=== PATIENT | female | born 1945 | race Caucasian/White ===

== ENCOUNTER 2016-12-04 09:05 | Outpatient (CLI) | payer MEDICARE | END 2016-12-04 09:06 | LOC: LAB 09:05 → RAD 09:06 | PROVIDERS: ATTEND Family Medicine | DX: M85.88 Other specified disorders of bone density and structure, other site (principal) ==

== ENCOUNTER 2017-09-11 09:40 | Outpatient (CLI) | payer MEDICARE ==
--- NOTE | 2017-09-11 11:43 | Diagnostic Imaging Report ---
MICHAEL CAMPBELL [facility] [address] [facility] [address] [address] Report Submission Date: Sep 11, 2017 11:05:11 AM ASSISTANT SCIENTIST Patient Study Name: TORRES CABALLERO Date: Sep 11, 2017 10:15:22 AM ASSISTANT SCIENTIST Modality Type: CR Gender: F Description: LOWER EXTREMITY : 47 Institution: [facility] Physician: MICHAEL CAMPBELL Examination: Plain film tibia/fibula History: Trauma Comparison exams: None available Findings: 2 views of the tibia fibula demonstrates knee replacement hardware. No evidence for fracture line. No soft tissue abnormality. Impression: No acute appearing osseous abnormality. Electronically signed on Sep 11, 2017 11:05:11 AM ASSISTANT SCIENTIST by: David STROUD
--- NOTE | 2017-09-11 11:43 | Diagnostic Imaging Report ---
MICHAEL CAMPBELL [facility] [address] [facility] [address] [address] Report Submission Date: Sep 11, 2017 11:04:02 AM SR COMMUNITY MANAGER Patient Study Name: TORRES CABALLERO Date: Sep 11, 2017 10:17:30 AM SR COMMUNITY MANAGER Modality Type: CR Gender: F Description: LOWER EXTREMITY : 47 Institution: [facility] Physician: MICHAEL CAMPBELL Examination: Plain film ankle History: Ankle discomfort. Findings: 3 views of the ankle demonstrates articular degenerative changes. No fracture or dislocation. Talar dome is intact. Calcaneal spurs. No soft tissue swelling. No joint effusion. Impression: Degenerative changes. No acute appearing osseous process. Electronically signed on Sep 11, 2017 11:04:02 AM SR COMMUNITY MANAGER by: David STROUD
== END 2017-09-11 09:45 ==
LOC: RAD 09:40
PROVIDERS: ATTEND Family Medicine
DX: M79.605 Pain in left leg (principal)
CPT/HCPCS: 73590; 73610

== ENCOUNTER 2018-04-18 09:56 | Emergency (ER) | payer MEDICARE ==
--- NOTE | 2018-04-18 10:04 | ED Physician Documentation ---
Nausea/Vomiting/Diarrhea - HISTORIAN Historian: patient - HPI Stated Complaint: nausea and vomiting Chief Complaint: Nausea,Vomiting,Diarrhea Onset: days ago (3) Duration: constant Last known Well Date: 04/16/18 Last Known Well Time: 07:00 Last known Well Code/Unknown Code: Unknown Timing: sudden onset Context: bad food Severity: moderate Further Comments: yes (she reports eating food from the local pantry on Friday and she has had nausea and vomiting that started . She states that she has had nausea vomiting and diarrhea since. she has not tried any OTC meds. No fever.) - Associated Symptoms Vomiting: frequent. denies: bloody Diarrhea: copious. denies: bloody Abdominal Pain: cramping, aching - ROS CONST: none CVS/RESP: denies: shortness of breath, cough GI/: denies: constipation, bloody stools, dark urine EYES/ENT: none MS/SKIN/LYMPH: joint pain (she has RA ) NEURO/PSYCH: none - PAST HX Past History: other (RA ) Surgeries/Procedures: appendectomy Immunizations: UTD Allergies/Adverse Reactions: Allergies Allergy/AdvReac Type Severity Reaction Status Date / Time No Allergy Information Allergy Unverified 04/18/18 10:30 Available Home Medications: Ambulatory Orders Medication Instructions Recorded Leflunomide 20 mg PO DAILY 04/18/18 Levothyroxine Sodium 75 mcg PO DAILY 04/18/18 Nortriptyline HCl 25 mg PO DAILY 04/18/18 Sertraline HCl 100 mg PO DAILY 04/18/18 predniSONE [Raina] 5 mg PO DAILY 04/18/18 - SOCIAL HX Smoking History: non-smoker Alcohol Use: none Drug Use: none - FAMILY HX Family History: none - VITAL SIGNS Vital Signs: Vital Signs Temp Pulse Resp BP Pulse Ox 98.5 F 88 16 107/60 95 04/18/18 10:12 04/18/18 12:46 04/18/18 12:46 04/18/18 12:46 04/18/18 12:46 - REVIEWED ASSESSMENTS Nursing Assessment Reviewed: Yes Vitals Reviewed: Yes Progress - Progress Progress: 1100: she states nausea is improved and she is feeling better. She is questioning what to eat at this point. DG 1227: Due to lab attempting to give oral potassium and monitor that she can hold that med down for discharge DG 1235: She states she is feeling "one hundred percent better and she is wanting to go home" DG ED Results Lab/Radiology - Lab Results Lab Results: Lab Results 04/18/18 04/18/18 04/18/18 10:45 10:45 10:45 WBC 6.40 K/ul K/ul (4.00-12.00) RBC 4.44 M/ul M/ul (3.90-5.20) Hgb 12.8 g/dL g/dL (12.0-16.0) Hct 38.4 % % (34.5-46.5) MCV 86.6 fl fl (80.0-100.0) MCH 28.8 pg pg (28.0-34.0) MCHC 33.3 g/dL g/dL (30.0-36.0) RDW 13.3 % % (11.3-14.3) Plt Count 242 K/mm3 K/mm3 (130-400) Neut % (Auto) 84.2 % H % (39.0-79.0) Lymph % (Auto) 10.5 % L % (16.0-50.0) Pepin % (Auto) 3.1 % % (0.0-11.0) Eos % (Auto) 0.2 % % (0.0-6.8) Baso % (Auto) 0.6 (0.0-1.5) Neut # (Auto) 5.4 # k/uL # k/uL (1.4-7.7) Lymph # (Auto) 0.7 # k/uL # k/uL (0.6-4.0) Pepin # (Auto) 0.2 # k/uL # k/uL (0.0-0.9) Eos # (Auto) 0.0 # k/uL # k/uL (0.0-0.6) Baso # (Auto) 0.0 # k/uL # k/uL (0.0-0.5) Reactive Lymphs % 1.4 % % (0.0-5.0) Reactive Lymphs # 0.1 # k/uL # k/uL (0.0-0.8) Sodium 134 mmol/L L mmol/L Cancelled (136-145) Potassium 3.2 mmol/L L mmol/L Cancelled (3.5-5.1) Chloride 93 mmol/L L mmol/L Cancelled (98-107) Carbon Dioxide Cancelled Total Carbon Dioxide 26 mmol/L mmol/L (22-29) BUN 6 mg/dL mg/dL Cancelled (6-20) Creatinine 0.80 mg/dL mg/dL Cancelled (0.40-1.50) Estimated Creat Clear Cancelled Est GFR ( Amer) Cancelled Est GFR (Non-Af Amer) Cancelled Estimated GFR mL/min 88 L Glucose 108 mg/dL H mg/dL Cancelled (70-99 Fasting) Calcium 9.1 mg/dL mg/dL Cancelled (8.6-10.2) Total Bilirubin <0.3 mg/dL mg/dL Cancelled (<1.2) AST 21 U/L U/L Cancelled (<32) ALT 15 U/L U/L Cancelled (<34) Alkaline Phosphatase 53 U/L U/L Cancelled (40-129) Total Protein 6.6 g/dL g/dL Cancelled (6.0-8.5) Albumin 4.4 g/dL g/dL Cancelled (3.5-5.2) - Orders Orders: ED Orders Category Date Time Status CBC/PLATELET/DIFF Routine Lab 04/18/18 10:45 Completed URINALYSIS Routine Lab 04/18/18 10:45 Received 0.9 % Sodium Chloride [Normal Saline] 1,000 ml Med 04/18/18 10:16 Discontinued IV .STK-MED 0.9 % Sodium Chloride [Normal Saline] 1,000 ml Med 04/18/18 10:57 Discontinued IV .STK-MED 0.9 % Sodium Chloride [Normal Saline] 1,000 ml Med 04/18/18 10:30 Discontinued IV Q10H 0.9 % Sodium Chloride [Normal Saline] 1,000 ml Med 04/18/18 10:59 Discontinued IV Q1H Ondansetron HCl/Pf [Zofran 4 mg/2 ml] Med 04/18/18 10:16 Discontinued 4 mg .ROUTE .STK-MED ONE Ondansetron HCl/Pf [Zofran 4 mg/2 ml] Med 04/18/18 10:14 Discontinued 4 mg IVP NOW ONE Potassium Chloride [Klor-Con M20] Med 04/18/18 12:08 Discontinued 20 meq PO NOW ONE Nausea Physical Exam - EXAM General Appearance: no acute distress, alert EENT: eye inspection normal Respiratory: no resp distress, chest non-tender, breath sounds normal CVS: reg rate & rhythm, heart sounds normal, equal pulses, no murmur Abdomen: tenderness (Right mid quad with palpation. "tenderness not pain" per pt ), abnml bowel sounds (hyperactive ) Back: non-tender Skin: warm/dry, normal color Extremities: non-tender, normal range of motion, no edema Neuro/Psych: oriented X3, CN's nml as tested, motor nml, sensation nml, mood/affect nml Discharge Clincal Impression: Food poisoning Qualifiers: Encounter type: initial encounter Injury intent: accidental or unintentional Qualified Code(s): T62.91XA - Toxic effect of unspecified noxious substance eaten as food, accidental (unintentional), initial encounter Referrals: Raymond Amador MD [Primary Care Provider] - 2 Days Comments: 1. [place] diet 2. Zofran 4 mg take 1 by mouth every 8 hours as needed 3. Potassium 20 mEq take 1 by mouth daily x 3 and re check the lab Friday at PCP 4. OTC meds for other symptoms as directed on package 5. Follow up with PCP Friday 6. Return to ER for any concerns Condition: Stable Disposition: 01 HOME, SELF-CARE Decision to Admit: NO Date of Decison to Admit: 04/18/18 Decision Time: 12:36
[2018-04-18] MEDS ORDERED: 0.9 % SODIUM CHLORIDE 1,000 ML IV ONE ×2 (10:16→10:57)
[2018-04-18] MEDS: 0.9 % SODIUM CHLORIDE 1,000 ML IV SCH (10:20)
[2018-04-18] MEDS: ONDANSETRON HCL/PF 4 MG/ 2ML VIAL IVP ONE (10:20)
[2018-04-18] MEDS: ONDANSETRON HCL/PF 4 MG/ 2ML VIAL ONE (10:26)
[2018-04-18 11:18] LABS: BASOPHILS % 0.6 (0.0-1.5); EOSINOPHILS % 0.2 % (0.0-6.8); MEAN CORPUSCULAR HEMOGLOBIN 28.8 pg (28.0-34.0); MEAN CORPUSCULAR VOLUME 86.6 fl (80.0-100.0); MONOCYTES % 3.1 % (0.0-11.0); NEUTROPHILS # 5.4 # k/uL (1.4-7.7)
[2018-04-18] MEDS: 0.9 % SODIUM CHLORIDE 1,000 ML IV ONE (11:36)
[2018-04-18] MEDS: POTASSIUM CHLORIDE 20 MEQ TABLET.ER PO ONE (12:15)
[2018-04-18 12:52] VITALS: BP 107/60
[2018-04-18 14:06] LABS: TOTAL PROTEIN 6.6 g/dL (6.0-8.5)
[2018-04-19 07:32] LABS: APPEARANCE,URINE CLEAR (CLEAR); COLOR,URINE YELLOW (YELLOW); OCCULT BLOOD,URINE NEGATIVE (NEGATIVE); UROBILINOGEN URINE 0.2 Eu (0.2-1.0)
== END 2018-04-18 12:40 | disposition home or self-care (01) ==
LOC: ED 09:56
DX: R11.2 Nausea with vomiting, unspecified (principal); R19.7 Diarrhea, unspecified; T62.91XA Toxic effect of unspecified noxious substance eaten as food, accidental (unintentional), initial encounter; Y92.9 Unspecified place or not applicable; Y93.9 Activity, unspecified; Y99.9 Unspecified external cause status; X58.XXXA Exposure to other specified factors, initial encounter
CPT/HCPCS: 80053; 81002; 85025; A9270; J2405; J7030; 96365; 96375; 99284; S1016

== ENCOUNTER 2018-06-18 09:59 | Outpatient (CLI) | payer MEDICARE ==
--- NOTE | 2018-06-21 09:48 | Diagnostic Imaging Report ---
INDIA PHOENIX [facility] [address] [facility] [address] Report Submission Date: Jun 21, 2018 9:37:15 AM CDT Patient Study Name: MARILY OLIVAS Date: Jun 21, 2018 9:20:31 AM CDT Modality Type: DX Gender: M Description: CHEST : [birth year] Institution: [facility] Physician: INDIA PHOENIX HISTORY: 38-year-old male with left-sided chest pain after fall 2 days ago. COMPARISON: None available. TECHNIQUE: Single portable AP view of the chest was performed. FINDINGS: No pneumothorax, consolidative infiltrates, or pulmonary edema. The heart is enlarged. No fractures are identified about the ribs. IMPRESSION: cardiomegaly without evidence of acute intrathoracic process. Electronically signed on Jun 21, 2018 9:37:15 AM CDT by: Jose Luis STROUD
== END 2018-06-18 10:00 ==
LOC: RAD 09:59
PROVIDERS: ATTEND Family Medicine
DX: Z78.0 Asymptomatic menopausal state (principal); Z13.9 Encounter for screening, unspecified
CPT/HCPCS: 77080

== ENCOUNTER 2018-07-30 13:45 | Emergency (ER) | payer MEDICARE ==
--- NOTE | 2018-07-30 13:48 | ED Physician Documentation ---
General Adult - HISTORIAN Historian: patient - HPI Stated Complaint: lac on right hand 5th finger Chief Complaint: Laceration/Recheck/Suture Onset: minutes (30) Timing: still present Severity: mild Further Comments: yes (she states she cut her finger decorating for [employer] on a glass base. No loss of feeling. She has no other complaints) Last known Well Code/Unknown Code: Unknown - ROS CONST: no problems EYES/ENT: none CVS/RESP: none GI/: none MS/SKIN/LYMPH: none - PAST HX Past History: other (depression , hypothyroidism and RA ) Immunizations: tetanus Allergies/Adverse Reactions: Allergies Allergy/AdvReac Type Severity Reaction Status Date / Time No Allergy Information Allergy Verified 07/30/18 13:59 Available Home Medications: Ambulatory Orders Medication Instructions Recorded Leflunomide 20 mg PO DAILY 04/18/18 Levothyroxine Sodium 75 mcg PO DAILY 04/18/18 Nortriptyline HCl 25 mg PO DAILY 04/18/18 Sertraline HCl 100 mg PO DAILY 04/18/18 predniSONE [Raina] 5 mg PO DAILY 04/18/18 - SOCIAL HX Smoking History: non-smoker Alcohol Use: none Drug Use: none - FAMILY HX Family History: No - VITAL SIGNS Vital Signs: Vital Signs Temp Pulse Resp BP Pulse Ox 107/60 06/10/18 15:36 - REVIEWED ASSESSMENTS Nursing Assessment Reviewed: Yes Vitals Reviewed: Yes Procedures Wound Repaired With: Dermabond (and 4 steri strips ) General Adult Physical Exam - PHYSICAL EXAM GENERAL APPEARANCE: no distress EENT: eye inspection normal RESPIRATORY: no resp distress, chest non-tender CVS: reg rate & rhythm ABDOMEN: soft, no distension SKIN: warm/dry, other (1 cm lac on right fifth finger FROM. Pulses + sensation + ) EXTREMITIES: non-tender, normal range of motion NEURO: oriented X3 Discharge Clincal Impression: Laceration of right hand Qualifiers: Encounter type: initial encounter Foreign body presence: without foreign body Qualified Code(s): S61.411A - Laceration without foreign body of right hand, initial encounter Referrals: Raymond Amador MD [Primary Care Provider] - 2 Days Additional Instructions: 1. Keep area clean and dry 2. Do not remove dressing x 24 hours 3. DO NOT PICK AT GLUE 4. See PCP in 2-4 days for any concerns 5. Return to ER for any concerns Condition: Stable Disposition: 01 HOME, SELF-CARE Decision to Admit: NO Date of Decison to Admit: 07/30/18 Decision Time: 14:31
[2018-07-30 14:00] VITALS: BP 130/80
[2018-07-30] MEDS ORDERED: DIPH,PERTUSS(ACELL),TET VAC/PF 0.5 ML DISP.SYRIN IM ONE (14:00)
== END 2018-07-30 14:36 | disposition home or self-care (01) ==
LOC: ED 13:45
DX: S61.411A Laceration without foreign body of right hand, initial encounter (principal); W26.8XXA Contact with other sharp object(s), not elsewhere classified, initial encounter; Y92.019 Unspecified place in single-family (private) house as the place of occurrence of the external cause
CPT/HCPCS: 12001; 90471; 90715; 99282